=== PATIENT | male | born 1965 | race African-American/Black ===

== ENCOUNTER 2024-01-13 09:29 | Outpatient (CLI) | payer MEDICAID | END 2024-01-13 23:59 | disposition home or self-care (01) | LOC: MRI02 09:29 | PROVIDERS: ATTEND Family Medicine | DX: R09.81 Nasal congestion (principal) ==

== ENCOUNTER 2024-07-30 14:44 | Emergency (ER) | payer MEDICAID ==
[~2024-07-30] VITALS: Ht 172.7 cm; Wt 58.0 kg
[2024-07-30 14:46] VITALS: BP 136/68; PULSE 112; RESP 15; O2SAT 97
[2024-07-30 16:20] VITALS: TEMP 97.4
== END 2024-07-30 16:22 | disposition home or self-care (01) ==
LOC: ER 14:45
DX: S50.11XA Contusion of right forearm, initial encounter (principal); F32.A Depression, unspecified; Z88.0 Allergy status to penicillin; W01.0XXA Fall on same level from slipping, tripping and stumbling without subsequent striking against object, initial encounter; Y93.89 Activity, other specified; Y92.89 Other specified places as the place of occurrence of the external cause; Y99.8 Other external cause status
CPT/HCPCS: 29125; 73090; 73110; 99284; A4565